=== PATIENT | male | born 1970 | race Caucasian/White ===

== ENCOUNTER 2024-08-01 00:25 | Emergency (ER) | payer OTHER ==
[~2024-08-01] VITALS: Ht 165.1 cm; Wt 79.8 kg
[2024-08-01 00:30] VITALS: BP 176/94; PULSE 68; RESP 18; TEMP 98; O2SAT 98
[2024-08-01] MEDS: NITROGLYCERIN 0.4 MG TAB SL ONE (01:02)
[2024-08-01 01:05] LABS: BASOPHILS # (AUTO) 0.3 K/uL (0.00-0.22); BASOPHILS % (AUTO) 2.2 % (0.0-2.0); EOSINOPHILS # (AUTO) 0.4 K/uL (0-0.4); EOSINOPHILS % (AUTO) 2.8 % (0.0-4.0); HEMATOCRIT 38.5 % (36-52); HEMOGLOBIN 13.1 g/dL (12.0-18.0); LYMPHOCYTES # (AUTO) 3.2 K/uL (2.0-11.5); LYMPHOCYTES % (AUTO) 23.1 % (20.5-51.1); MEAN CORPUSCULAR HEMOGLOBIN 27 pg (27-31); MEAN CORPUSCULAR HGB CONC 34 g/dL (33-37); MEAN CORPUSCULAR VOLUME 80.3 fL (80-94); MONOCYTES # (AUTO) 0.7 K/uL (0.8-1.0); MONOCYTES % (AUTO) 5.3 % (1.7-9.3); NEUTROPHILS # (AUTO) 9.3 K/uL (1.8-7.7); NEUTROPHILS % (AUTO) 66.6 % (42.2-75.2); PLATELET COUNT (AUTO) 333 K/uL (140-450)
[2024-08-01 01:19] LABS: ANION GAP 10.2 (8-16); CALCIUM 8.8 mg/dL (8.5-10.1); CARBON DIOXIDE 28.7 mmol/L (21-32); CREATININE 0.8 mg/dL (0.6-1.3); POTASSIUM 3.9 mmol/L (3.5-5.1)
[2024-08-01 01:33] LABS: INR 0.95 (0.8-1.2); PARTIAL THROMBOPLASTIN TIME 27.3 secs (22-35.6)
[2024-08-01 02:50] VITALS: BP 116/83; PULSE 67; RESP 18; O2SAT 96
== END 2024-08-01 03:26 | disposition home or self-care (01) ==
LOC: MED 00:25
DX: R07.89 Other chest pain (principal)
CPT/HCPCS: 36415; 71045; 80048; 83880; 84484; 85025; 85610; 85730; 93005; 99285; Q0092

== ENCOUNTER 2024-08-01 12:02 | Emergency (ER) | payer OTHER ==
[~2024-08-01] VITALS: Ht 167.6 cm; Wt 79.4 kg
[2024-08-01 12:22] VITALS: BP 120/76; PULSE 78; RESP 18; TEMP 97.8; O2SAT 98
[2024-08-01 13:28] VITALS: BP 125/80; PULSE 73; RESP 16; TEMP 97; O2SAT 73
== END 2024-08-01 13:28 | disposition home or self-care (01) ==
LOC: MED 12:02
DX: R07.9 Chest pain, unspecified (principal); E04.9 Nontoxic goiter, unspecified; Z90.49 Acquired absence of other specified parts of digestive tract
CPT/HCPCS: 71250; 99284